=== PATIENT | female | born 1960 | race Caucasian/White ===

== ENCOUNTER 2021-01-18 08:12 | Outpatient (CLI) | payer OTHER ==
[~2021-01-18 08:12] MED LIST: AZIT250T89 PO; BENZ-17 PO; GUAI5SYR PO; HYDR200T72 PO; LEVO750T26 PO; METO-282 PO; OMEP20TA62 PO; REGADENOSON 0.4 MG/5 ML SYRINGE ONE
== END 2021-01-18 23:59 | disposition home or self-care (01) ==
LOC: CFH 08:12
PROVIDERS: ATTEND Internal Medicine Cardiovascular Disease
DX: R55 Syncope and collapse (principal); I45.10 Unspecified right bundle-branch block; R07.89 Other chest pain
CPT/HCPCS: 78452; 93017; A9502; J2785